=== PATIENT | female | born 1965 | race Caucasian/White ===

== ENCOUNTER 2020-01-16 19:35 | Emergency (ER) | payer BC ==
--- NOTE | 2020-01-16 19:53 | EDM.PDOC ---
ED HPI GENERAL MEDICAL PROBLEM - General Chief Complaint: ENT Problem Stated Complaint: BUG IN LEFT EAR Time Seen by Provider: 01/16/20 19:42 Source of Information: Reports: Patient History Limitations: Reports: No Limitations - History of Present Illness INITIAL COMMENTS - FREE TEXT/NARRATIVE: Patient is a 54-year-old female who presents to the emergency department with complaints of a bug in her left ear. She states she was working out in the garden when a bug flew in there. She tried numerous attempts to remove the bug including her using a tweezers, irrigating it with water, and a Q-tip. She does not feel the bug moving in there, however she feels like it may have moved up in her ear after she irrigated it. She denies any significant pain. Left Ear Pain Score (Numeric/FACES): 5 - Related Data Allergies Allergy/AdvReac Type Severity Reaction Status Date / Time Penicillins Allergy Severe Cannot Verified 01/16/20 19:48 Remember phenytoin [From Dilantin] Allergy Severe Cannot Verified 01/16/20 19:48 Remember Sulfa (Sulfonamide Allergy Severe Cannot Verified 01/16/20 19:48 Antibiotics) Remember Home Meds: Home Meds ALPRAZolam [Alprazolam Odt] 0.25 mg PO Q8H PRN 01/16/20 [History] Aspirin [Halfprin] 81 mg PO DAILY 01/16/20 [History] Fluticasone Propionate [24 Hour Allergy] 1 spray NS BID 01/16/20 [History] Metoprolol Succinate 50 mg PO DAILY 01/16/20 [History] Simvastatin 20 mg PO DAILY 01/16/20 [History] amLODIPine Besylate [Amlodipine Besylate] 10 mg PO DAILY 01/16/20 [History] traMADol [Ultram] 50 mg PO Q6H PRN 01/16/20 [History] ED ROS ENT - Review of Systems Review Of Systems: Comprehensive ROS is negative, except as noted in HPI. ED EXAM, ENT - Physical Exam Exam: See Below Exam Limited By: No Limitations General Appearance: Alert, WD/WN, No Apparent Distress Ears: Normal TMs, Other (Left ear canal is inflamed with dried blood present there appears to be abrasion to the ear canal. TM is visualized and appears normal. There is no bug present within the ear canal.) Respiratory/Chest: No Respiratory Distress, Lungs Clear, Normal Breath Sounds, No Accessory Muscle Use, Chest Non-Tender Cardiovascular: Normal Peripheral Pulses, Regular Rate, Rhythm, No Edema, No Gallop, No JVD, No Murmur, No Rub Neurological: Alert, Oriented, CN II-XII Intact, Normal Cognition, Normal Gait, Normal Reflexes, No Motor/Sensory Deficits Psychiatric: Normal Affect, Normal Mood Skin: Warm, Dry, Intact, Normal Color, No Rash Course - Vital Signs Last Recorded V/S: Last Vital Signs Temp 98.7 F 01/16/20 19:45 Pulse 108 H 01/16/20 19:45 Resp 16 01/16/20 19:45 BP 131/76 01/16/20 19:45 Pulse Ox 96 01/16/20 19:45 - Re-Assessments/Exams Free Text/Narrative Re-Assessment/Exam: 01/16/20 19:50 Patient's ear canal was inspected using the otoscope by both myself and Dr. Mederos. There is no bug present in the ear canal. Likely came out when the patient flushed her ear. She does have some irritation to the ear canal including a small scratch. We will discharge her home with instructions to keep her ear canal clean with normal soap and water. Discharge instructions as documented. Departure - Departure Time of Disposition: 19:53 Disposition: Home, Self-Care 01 Condition: Good Clinical Impression: Foreign body in ear Qualifiers: Encounter type: initial encounter Laterality: left Qualified Code(s): T16.2XXA - Foreign body in left ear, initial encounter - Discharge Information *PRESCRIPTION DRUG MONITORING PROGRAM REVIEWED*: No *COPY OF PRESCRIPTION DRUG MONITORING REPORT IN PATIENT DALILA: No Instructions: Ear Foreign Body, [id number] Referrals: PCP,None [Ordering Only Provider] - Forms: ED Department Discharge Additional Instructions: You were seen in the emergency department tonight with concerns of a bug in your left ear. On exam, there was no bug present in the ear. It is likely that when you were irrigating your ear with water that you flushed it out. There is however irritation and a scratch inside your ear canal. Recommend that you keep this area clean with normal soap and water. Return to the ER as needed. Sepsis Event Note - Evaluation Sepsis Screening Result: No Definite Risk - Focused Exam Vital Signs: Vital Signs Temp Pulse Resp BP Pulse Ox 01/16/20 19:45 98.7 F 108 H 16 131/76 96 Date Exam was Performed: 01/16/20 Time Exam was Performed: 21:24
== END 2020-01-16 19:57 | disposition home or self-care (01) ==
LOC: JD.ED 19:35
DX: T16.2XXA Foreign body in left ear, initial encounter (principal); Z88.0 Allergy status to penicillin; Z88.8 Allergy status to other drugs, medicaments and biological substances; Z88.2 Allergy status to sulfonamides; Z79.82 Long term (current) use of aspirin; Z79.899 Other long term (current) drug therapy
CPT/HCPCS: 99282